=== PATIENT | male | born 1995 | race African-American/Black ===

== ENCOUNTER 2023-01-04 23:00 | Emergency (ER) | payer SELFPAY ==
[2023-01-05] MEDS ORDERED: Tetracaine 0.5% PF 4 ML BOT ONE (00:37)
[2023-01-05] MEDS ORDERED: Fluorescein Opthalmic Strip ONE (00:37)
[2023-01-05] MEDS ORDERED: Erythromycin Base 0.5% Oint 1 GM TUBE ONE (01:28)
== END 2023-01-05 01:30 | disposition home or self-care (01) ==
LOC: CSHERS 23:00
DX: H16.133 Photokeratitis, bilateral (principal)
CPT/HCPCS: 99283